=== PATIENT | female | born 1945 | race Caucasian/White ===

== ENCOUNTER 2020-06-13 18:11 | Inpatient (IN) | payer MEDICARE, OTHER ==
--- NOTE | 2020-06-13 18:44 | ERPHSYRPT ---
- History of Present Illness Source: patient Exam Limitations: no limitations Patient Subjective Stated Complaint: HTN Triage Nursing Assessment: Patient ambulated back to ED and transferred self to bed. Patient A+O X3. Patient's skin pink, warm and dry. Patient complains of HTN since yesterday morning around 143/100. Patient denies pain or discomfort. Patient's lungs clear a/p [place]. No edema noted. Heart tones audible. Patient states she just feel a little off and dizzy at times. Patient does states she has a hx of vertigo. Timing/Duration: yesterday, gradual onset, worse Severity: moderate Associated Symptoms: denies symptoms Hx Tetanus, Diphtheria Vaccination/Date Given: No Hx Influenza Vaccination/Date Given: Yes Hx Pneumococcal Vaccination/Date Given: No Immunizations Up to Date: Yes <JENN PULIDO - Last Filed: 06/13/20 18:50> <PRICILA HANSEN - Last Filed: 06/13/20 21:50> - History of Present Illness Time Seen by Provider: 06/13/20 18:31 Physician History: 74 years old female with a history of hypertension fairly controlled until yesterday presented in the ER with uncontrolled blood pressure going in 170s despite taking her routine medications. Yesterday she took 2 extra 10 mg lisinopril's which helped control pressure but today it was not helping. Denies any chest pain palpitations or shortness of breath but does feel some vertiginous symptoms which patient states she occasionally get vertigo. Denies any numbness tingling or focal weakness. No visual disturbance. Denies any abdominal pain nausea or vomiting. Itzf-ikx-xerorel cough cold medication use. (JENN PULIDO) Allergies/Adverse Reactions: codeine [Codeine] Allergy (Mild, Verified 06/13/20 18:23) Vomiting fentanyl Allergy (Mild, Verified 06/13/20 18:23) meperidine HCl [From Demerol] Allergy (Mild, Verified 06/13/20 18:23) morphine Allergy (Mild, Verified 06/13/20 18:23) VOMITING promethazine HCl [From Phenergan] Allergy (Mild, Verified 06/13/20 18:23) Home Medications: Celecoxib [Celebrex] 200 mg PO BID 10/25/11 [History] Leflunomide 1 tab PO DAILY 06/13/20 [History] Lisinopril 10 mg [Zestril 10 MG] 1 tab PO DAILY 06/13/20 [History] Travel Risk - International Travel Have you traveled outside of the country in past 3 weeks: No - Coronavirus Screening Are you exhibiting any of the following symptoms?: No Close contact with a COVID-19 positive Pt in past 14-21 Days: No <JENN PULIDO - Last Filed: 06/13/20 18:50> - Review of Systems Constitutional: No Symptoms Eyes: No Symptoms Ears, Nose, & Throat: No Symptoms Respiratory: No Symptoms Cardiac: No Symptoms Abdominal/Gastrointestinal: No Symptoms Genitourinary Symptoms: No Symptoms Musculoskeletal: No Symptoms Skin: No Symptoms Neurological: Dizziness Psychological: No Symptoms Endocrine: No Symptoms Hematologic/Lymphatic: No Symptoms Immunological/Allergic: No Symptoms <JENN PULIDO - Last Filed: 06/13/20 18:50> - Past Medical History Pertinent Past Medical History: Yes Neurological History: No Pertinent History ENT History: No Pertinent History Cardiac History: Hypertension Respiratory History: No Pertinent History Endocrine Medical History: No Pertinent History Musculoskeletal History: Osteoarthritis, Rheumatoid Arthritis GI Medical History: No Pertinent History History: No Pertinent History Psycho-Social History: No Pertinent History Female Reproductive Disorders: No Pertinent History Other Medical History: NO SIGNIFICANT SURGICAL HX. PAST SUMMER HAD RIGHT EYE SURGERY FOR TEAR IN [place] - Past Surgical History Past Surgical History: Yes Neuro Surgical History: No Pertinent History Cardiac: No Pertinent History Respiratory: No Pertinent History Genitourinary: No Pertinent History Musculoskeletal: No Pertinent History Female Surgical History: Hysterectomy Other Surgical History: JOINT REPLACEMENT LEFT HAND AND ONLY PARTIAL HYSTERECTOMY - Social History Smoking Status: Never smoker Exposure to second hand smoke: Yes Drug Use: none Patient Lives Alone: Yes - Female History Hx Now: No <JENN PULIDO - Last Filed: 06/13/20 18:50> - Physical Exam General Appearance: no apparent distress, alert, anxiety Eye Exam: PERRL/EOMI, eyes nml inspection Ears, Nose, Throat Exam: normal ENT inspection, TMs normal, pharynx normal Neck Exam: normal inspection, non-tender, supple, full range of motion Respiratory Exam: normal breath sounds, lungs clear Cardiovascular Exam: regular rate/rhythm, normal heart sounds Gastrointestinal/Abdomen Exam: soft, normal bowel sounds, No tenderness Back Exam: normal inspection, normal range of motion Neurologic Exam: alert, oriented x 3, cooperative, supervisor pipe joints II-XII nml as tested, normal mood/affect, nml cerebellar function, sensation nml, No motor deficits, No sensory deficit Skin Exam: normal color SpO2 Interpretation: normal SpO2: 98 O2 Delivery: Room Air <JENN PULIDO - Last Filed: 06/13/20 18:50> - Nursing Vital Signs Nursing Vital Signs: Initial Vital Signs Temperature 98.0 F 06/13/20 18:24 Pulse Rate 80 06/13/20 18:24 Respiratory Rate 18 06/13/20 18:24 Blood Pressure 195/100 06/13/20 18:24 O2 Sat by Pulse Oximetry 98 06/13/20 18:24 Pain Scale Pain Intensity 0 - Course EKG Interpreted by Me: RATE (87), Sinus Rhythm, NORMAL AXIS, NORMAL INTERVALS, Other (Inferior leads ST depression) <JENN PULIDO - Last Filed: 06/13/20 18:50> Ordered Tests: Active Orders 24 hr Category Date Time Status EKG-ER Only STAT Care 06/13/20 18:39 Active IV Insertion STAT Care 06/13/20 18:39 Active CHEST 1 VIEW (PORTABLE) Stat Exams 06/13/20 18:38 Taken HEAD WITHOUT CONTRAST [CT] Stat Exams 06/13/20 18:39 Taken CBC W DIFF Stat Lab 06/13/20 18:42 Completed CMP Stat Lab 06/13/20 18:42 Completed CULTURE,URINE Stat Lab 06/13/20 18:42 Received TROPONIN Q3H Lab 06/13/20 18:40 Completed TROPONIN Q3H Lab 06/13/20 21:38 Received TROPONIN Q3H Lab 06/14/20 00:45 Ordered TROPONIN Q3H Lab 06/14/20 03:45 Ordered TROPONIN Q3H Lab 06/14/20 06:45 Ordered UA W/RFX UR CULTURE Stat Lab 06/13/20 18:42 Completed Transfer Order Routine Transfer 06/13/20 Ordered Medication Summary Generic Name Dose Route Start Last Admin Trade Name Freq PRN Reason Stop Dose Admin Sodium Chloride 1,000 mls @ 75 mls/hr 06/13/20 20:15 06/13/20 20:18 Sodium Chloride 0.9% 1000 Ml IV 07/13/20 20:14 75 mls/hr .[id number] KELLY Administration Discontinued Medications Generic Name Dose Route Start Last Admin Trade Name Karin PRN Reason Stop Dose Admin Clonidine 0.1 mg 06/13/20 21:12 06/13/20 21:13 Catapres 0.1 Mg PO 06/13/20 21:13 0.1 mg STAT ONE Administration Clonidine Confirm 06/13/20 21:13 Catapres 0.1 Mg Administered 06/13/20 21:14 Dose 0.1 mg .ROUTE .STK-MED ONE Enalaprilat 1.25 mg 06/13/20 19:08 06/13/20 19:25 Vasotec I.V. 2.5 Mg IV 06/13/20 19:09 1.25 mg STAT ONE Administration Enalaprilat Confirm 06/13/20 19:23 Vasotec I.V. 2.5 Mg Administered 06/13/20 19:24 Dose 2.5 mg IV .STK-MED ONE Metoprolol Tartrate 5 mg 06/13/20 20:48 06/13/20 20:53 Lopressor 5 Mg/5 Ml Injection IV 06/13/20 20:49 5 mg STAT ONE Administration Metoprolol Tartrate Confirm 06/13/20 20:52 Lopressor 5 Mg/5 Ml Injection Administered 06/13/20 20:53 Dose 5 mg IV .STK-MED ONE Lab/Rad Data: Laboratory Result Diagrams 06/13/20 18:42 06/13/20 18:42 Laboratory Results 06/13/20 06/13/20 06/13/20 Range/Units 18:42 18:42 18:42 WBC 4.3 (4.0-10.5) K/mm3 RBC 4.43 (4.1-5.4) M/mm3 Hgb 13.0 (12.0-16.0) gm/dl Hct 39.4 (35-47) % MCV 88.9 (78-100) fl MCH 29.3 (26-32) pg MCHC 33.0 (32-36) g/dl RDW 13.0 (11.5-14.0) % Plt Count 150 (150-450) K/mm3 MPV 10.4 (7.5-11.0) fl Gran % 65.8 (36.0-66.0) % Eos # (Auto) 0 (0-0.5) Absolute Lymphs (auto) 0.77 L (1.0-4.6) Absolute Monos (auto) 0.70 (0.0-1.3) Lymphocytes % 17.8 L (24.0-44.0) % Monocytes % 16.2 H (0.0-12.0) % Eosinophils % 0.0 (0.00-5.0) % Basophils % 0.2 (0.0-0.4) % Absolute Granulocytes 2.85 (1.4-6.9) Basophils # 0.01 (0-0.4) Sodium 127 L (137-145) mmol/L Potassium 3.7 (3.5-5.1) mmol/L Chloride 94 L (98-107) mmol/L Carbon Dioxide 26 (22-30) mmol/L Anion Gap 10.9 (5-15) MEQ/L BUN 15 (7-17) mg/dL Creatinine 0.50 L (0.52-1.04) mg/dL Estimated GFR > 60.0 ML/MIN Glucose 109 H (74-106) mg/dL Calcium 9.3 (8.4-10.2) mg/dL Total Bilirubin 0.50 (0.2-1.3) mg/dL AST 35 (14-36) U/L ALT 20 (0-35) U/L Alkaline Phosphatase 88 (38-126) U/L Troponin I (0.000-0.034) ng/mL Serum Total Protein 7.9 (6.3-8.2) g/dL Albumin 4.3 (3.5-5.0) g/dL Urine Color YELLOW (YELLOW) Urine Appearance CLEAR (CLEAR) Urine pH 5.0 (5-6) Ur Specific [place] 1.019 (1.005-1.025) Urine Protein 100 (Negative) Urine Ketones TRACE (NEGATIVE) Urine Blood MODERATE (0-5) [place]/ul Urine Nitrite NEGATIVE (NEGATIVE) Urine Bilirubin NEGATIVE (NEGATIVE) Urine Urobilinogen NEGATIVE (0-1) mg/dL Ur Leukocyte Esterase NEGATIVE (NEGATIVE) Urine WBC (Auto) 0-2 (0-5) /HPF Urine RBC (Auto) 0-2 (0-2) /HPF U Hyaline Cast (Auto) 0-2 (0-2) /LPF U Epithel Cells (Auto) NONE (FEW) /HPF Urine Bacteria (Auto) RARE (NEGATIVE) /HPF Urine Mucus (Auto) SLIGHT (NEGATIVE) /HPF Urine Culture Reflexed YES (NO) Urine Glucose NEGATIVE (NEGATIVE) mg/dL 24/20 Range/Units 18:40 WBC (4.0-10.5) K/mm3 RBC (4.1-5.4) M/mm3 Hgb (12.0-16.0) gm/dl Hct (35-47) % MCV (78-100) fl MCH (26-32) pg MCHC (32-36) g/dl RDW (11.5-14.0) % Plt Count (150-450) K/mm3 MPV (7.5-11.0) fl Gran % (36.0-66.0) % Eos # (Auto) (0-0.5) Absolute Lymphs (auto) (1.0-4.6) Absolute Monos (auto) (0.0-1.3) Lymphocytes % (24.0-44.0) % Monocytes % (0.0-12.0) % Eosinophils % (0.00-5.0) % Basophils % (0.0-0.4) % Absolute Granulocytes (1.4-6.9) Basophils # (0-0.4) Sodium (137-145) mmol/L Potassium (3.5-5.1) mmol/L Chloride (98-107) mmol/L Carbon Dioxide (22-30) mmol/L Anion Gap (5-15) MEQ/L BUN (7-17) mg/dL Creatinine (0.52-1.04) mg/dL Estimated GFR ML/MIN Glucose (74-106) mg/dL Calcium (8.4-10.2) mg/dL Total Bilirubin (0.2-1.3) mg/dL AST (14-36) U/L ALT (0-35) U/L Alkaline Phosphatase (38-126) U/L Troponin I < 0.012 (0.000-0.034) ng/mL Serum Total Protein (6.3-8.2) g/dL Albumin (3.5-5.0) g/dL Urine Color (YELLOW) Urine Appearance (CLEAR) Urine pH (5-6) Ur Specific [place] (1.005-1.025) Urine Protein (Negative) Urine Ketones (NEGATIVE) Urine Blood (0-5) [place]/ul Urine Nitrite (NEGATIVE) Urine Bilirubin (NEGATIVE) Urine Urobilinogen (0-1) mg/dL Ur Leukocyte Esterase (NEGATIVE) Urine WBC (Auto) (0-5) /HPF Urine RBC (Auto) (0-2) /HPF U Hyaline Cast (Auto) (0-2) /LPF U Epithel Cells (Auto) (FEW) /HPF Urine Bacteria (Auto) (NEGATIVE) /HPF Urine Mucus (Auto) (NEGATIVE) /HPF Urine Culture Reflexed (NO) Urine Glucose (NEGATIVE) mg/dL <JENN PULIDO - Last Filed: 06/13/20 18:50> - Progress Progress: improved, re-examined Counseled pt/family regarding: lab results, diagnosis, need for follow-up, rad results <PRICILA HANSEN - Last Filed: 06/13/20 21:50> - Progress Progress Note: 06/13/20 18:45 Work-up is pending, care is transferred to Dr. Hansen at shift change. (JENN PULIDO) 06/13/20 20:10 CAT scan of the brain without contrast reveals no acute intracranial abnormality. 06/13/20 21:09 Chest x-ray shows chronic changes but no acute cardiopulmonary process. Medical decision making: This patient prefers to go home. Her laboratory work- up shows mild hyponatremia and mild dehydration. She also has hypertension. Her CAT scan of her head is normal without any evidence of acute intracranial abnormality. Her blood pressure is coming down. She has no visual changes no headache she has no chest pain she is not short of breath. Her troponin is normal. 06/13/20 21:[address] Christensen about placing this patient in observation. I reviewed the patient history, condition, and laboratory and radiographic work-up results. He agrees. The patient also agrees to come into the hospital. We will make arrangements for placing the patient in observation (PRICILA HANSEN) <JENN PULIDO - Last Filed: 06/13/20 18:50> - Departure Departure Disposition: Observation Critical Care Time: Yes Critical Care Time(excluding separately billable procedures): Critical 30-74 mins <PRICILA HANSEN - Last Filed: 06/13/20 21:50> - Departure Clinical Impression: Hypertensive urgency, Hyponatremia, Mild dehydration Condition: Stable Referrals: JONNY JACK CREDIT REVIEW MANAGER [Primary Care Provider] -
[2020-06-13 18:50] LABS: Absolute Neutrophil Ct (ANC) 2.85 (1.4-6.9); BASOPHIL % 0.2 % (0.0-0.4); Basophil (Absolute #) 0.01 (0-0.4); Eosinophil (Absolute #) 0 (0-0.5); Hematocrit 39.4 % (35-47); Lymphocyte (Absolute #) 0.77 (1.0-4.6); Lymphocytes % 17.8 % (24.0-44.0); Mean Cell Volume 88.9 fl (78-100); Mean Corpuscular Hemoglobin 29.3 pg (26-32); Mean Platelet Volume 10.4 fl (7.5-11.0); Monocytes % 16.2 % (0.0-12.0); Neutrophil % 65.8 % (36.0-66.0); Platelet Count 150 K/mm3 (150-450); Red Blood Count 4.43 M/mm3 (4.1-5.4); White Blood Count 4.3 K/mm3 (4.0-10.5)
[2020-06-13 18:56] LABS: Appearance CLEAR (CLEAR); Bacteria RARE /HPF (NEGATIVE); Bilirubin NEGATIVE (NEGATIVE); Blood MODERATE Ery/ul (0-5); Glucose NEGATIVE (NEGATIVE); Hyaline Casts 0-2 /LPF (0-2); Ketones TRACE (NEGATIVE); Leukocyte Esterase NEGATIVE (NEGATIVE); Mucus SLIGHT /HPF (NEGATIVE); Nitrite NEGATIVE (NEGATIVE); Protein,Urine Dip 100 (Negative); RBC 0-2 /HPF (0-2); Specific Gravity 1.019 (1.005-1.025); Urobilinogen NEGATIVE mg/dL (0-1); WBC 0-2 /HPF (0-5)
[2020-06-13 19:08] LABS: ALBUMIN 4.3 g/dL (3.5-5.0); ALKALINE PHOSPHATASE 88 U/L (38-126); ANION GAP 10.9 MEQ/L (5-15); BLOOD UREA NITROGEN 15 mg/dL (7-17); CHLORIDE 94 mmol/L (98-107); Calcium 9.3 mg/dL (8.4-10.2); Carbon Dioxide 26 mmol/L (22-30); EST GLOMERULAR FILTRATION RATE > 60.0 ML/MIN; Glucose 109 mg/dL (74-106); Potassium 3.7 mmol/L (3.5-5.1); SGOT/AST 35 U/L (14-36); SGPT/ALT 20 U/L (0-35); SODIUM 127 mmol/L (137-145); Total Protein 7.9 g/dL (6.3-8.2)
[2020-06-13] MEDS ORDERED: VASOTEC I.V. 2.5 MG IV ONE ×2 (19:08→19:23)
[2020-06-13] MEDS ORDERED: Sodium Chloride 0.9% 1000 ML 1,000 ML IV SCH (20:15)
[2020-06-13] MEDS ORDERED: Sodium Chloride 0.9% 1000 ML 1,000 ML ONE (20:17)
[2020-06-13] MEDS ORDERED: LOPRESSOR 5 MG/5 ML INJECTION IV ONE ×2 (20:48→20:52)
[2020-06-13] MEDS ORDERED: Catapres 0.1 MG PO ONE (21:12)
[2020-06-13] MEDS ORDERED: Catapres 0.1 MG ONE (21:13)
[2020-06-13] MEDS ORDERED: Zofran 4 MG/2 ML VIAL IV PRN (22:22)
[2020-06-13] MEDS: VASOTEC I.V. 2.5 MG IV SCH (23:30)
[2020-06-14] MEDS: TYLENOL 325 MG PO PRN ×3 (01:58→16:37)
[2020-06-14] MEDS: VASOTEC I.V. 2.5 MG IV SCH (04:22)
[2020-06-14 04:32] LABS: ANION GAP 5.4 MEQ/L (5-15); BLOOD UREA NITROGEN 10 mg/dL (7-17); CHLORIDE 99 mmol/L (98-107); Calcium 8.6 mg/dL (8.4-10.2); Carbon Dioxide 29 mmol/L (22-30); Creatinine 1 0.47 mg/dL (0.52-1.04); EST GLOMERULAR FILTRATION RATE > 60.0 ML/MIN; Glucose 96 mg/dL (74-106); Potassium 3.6 mmol/L (3.5-5.1); SODIUM 130 mmol/L (137-145)
[2020-06-14] MEDS ORDERED: VASOTEC I.V. 2.5 MG IV PRN (07:30)
--- NOTE | 2020-06-14 08:48 | XRAY ---
Indication: Dizziness. Elevated blood pressure. Multiple contiguous axial images obtained through the head without contrast. Comparison: May 07, 2011. There is again age-appropriate global atrophy with now mild periventricular degenerative micro-ischemia bilaterally. No acute intracranial hemorrhage, abnormal extra-axial fluid collection, or mass effect. Fourth ventricle is midline without hydrocephalus. [place]-white matter differentiation preserved. Bony calvarium intact. Near complete opacification of the visualized right maxillary sinus. Remaining visualized paranasal sinuses and mastoid air cells are clear. Impression: Nonacute senile brain. Incidental paranasal sinus disease. Comment: Preliminary interpretation was made by [facility]. No critical discrepancy.
--- NOTE | 2020-06-14 08:50 | XRAY ---
Indication: Elevated blood pressure. Comparison: None Portable apical lordotic chest clear with incidental tiny calcified granulomas. Heart is not enlarged. Descending aorta mildly tortuous. Bony thorax intact with mild osteopenia and degenerative changes. Impression: Nonacute chest with chronic features.
--- NOTE | 2020-06-14 10:21 | PCM.SSS ---
History of Present Illness - Chief Complaint Chief Complaint: Hypertensive urgency History of Present Illness: is a 74 year old female who came to the ER with complaint of elevated blood pressure, it had been high for last 3-4 days, no chest pain, no visual changes, had some headache, no mental status changes, no neuro symptoms. takes lisinopril 10mg daily and reports compliance. - Review of Systems Constitutional: No Fever, No Chills Respiratory: No Cough, No Short Of Breath Cardiac: No Chest Pain, No Edema, No Syncope Abdominal/Gastrointestinal: No Abdominal Pain, No Nausea, No Vomiting, No Diarrhea Skin: No Rash All Other Systems: Reviewed and Negative Medications & Allergies Home Medications: Home Medication List Celecoxib [Celebrex] 200 mg PO BID 10/25/11 [History Confirmed 06/13/20] Leflunomide 1 tab PO DAILY 06/13/20 [History Confirmed 06/13/20] Lisinopril 10 mg [Zestril 10 MG] 2 tab PO DAILY #60 tablet 06/14/20 [Rx] Allergies/Adverse Reactions: Allergies Allergy/AdvReac Type Severity Reaction Status Date / Time codeine [Codeine] Allergy Mild Vomiting Verified 06/13/20 18:23 fentanyl Allergy Mild Verified 06/13/20 18:23 meperidine HCl [From Demerol] Allergy Mild Verified 06/13/20 18:23 morphine Allergy Mild Verified 06/13/20 18:23 promethazine HCl Allergy Mild Verified 06/13/20 18:23 [From Phenergan] - Past Medical History Past Medical History: Yes Neurological History: No Pertinent History ENT History: No Pertinent History Cardiac History: Hypertension Respiratory History: No Pertinent History Endocrine Medical History: No Pertinent History Musculoskelatal History: Osteoarthritis, Rheumatoid Arthritis GI Medical History: No Pertinent History History: No Pertinent History Pyscho-Social History: No Pertinent History Reproductive Disorders: No Pertinent History Comment: NO SIGNIFICANT SURGICAL HX. PAST SUMMER HAD RIGHT EYE SURGERY FOR TEAR IN [place] - Female History Are you now?: No - Past Surgical History Past Surgical History: Yes Neuro Surgical History: No Pertinent History Cardiac History: No Pertinent History Respiratory Surgery: No Pertinent History Genitourinary Surgical Hx: No Pertinent History Musculskeletal Surgical Hx: No Pertinent History Female Surgical History: Hysterectomy Other Surgical History: JOINT REPLACEMENT LEFT HAND AND ONLY PARTIAL HYSTERECTOMY - Social History Smoking Status: Never smoker Exposure to second hand smoke: No Alcohol: None Drug Use: none - Physical Exam Vital Signs: Vital Signs - 24 hr Temp Pulse Resp BP Pulse Ox 06/14/20 07:47 97.8 F 77 16 145/77 96 06/14/20 03:41 99.1 F 72 17 139/76 96 06/14/20 00:00 18 06/13/20 23:06 97.7 F 71 19 126/66 96 06/13/20 22:22 96 06/13/20 22:00 75 155/103 96 06/13/20 21:01 77 157/92 94 L 06/13/20 20:00 81 14 166/99 95 06/13/20 19:20 81 165/100 95 06/13/20 18:50 98 06/13/20 18:24 98.0 F 80 18 195/100 98 General Appearance: no apparent distress, alert Neurologic Exam: alert, oriented x 3, cooperative, normal mood/affect, nml cerebellar function, nml station & gait, sensation nml, No motor deficits Eye Exam: PERRL/EOMI, eyes nml inspection Respiratory Exam: normal breath sounds, lungs clear, No respiratory distress Cardiovascular Exam: regular rate/rhythm, normal heart sounds, normal peripheral pulses Gastrointestinal/Abdomen Exam: soft, normal bowel sounds, No tenderness, No mass Extremity Exam: normal inspection, normal range of motion, pelvis stable Skin Exam: normal color, warm, dry, No rash Results - Labs Lab/Micro Results: Lab Results-Last 24 Hours 06/13/20 06/13/20 06/13/20 Range/Units 18:40 18:42 18:42 WBC 4.3 (4.0-10.5) K/mm3 RBC 4.43 (4.1-5.4) M/mm3 Hgb 13.0 (12.0-16.0) gm/dl Hct 39.4 (35-47) % MCV 88.9 (78-100) fl MCH 29.3 (26-32) pg MCHC 33.0 (32-36) g/dl RDW 13.0 (11.5-14.0) % Plt Count 150 (150-450) K/mm3 MPV 10.4 (7.5-11.0) fl Gran % 65.8 (36.0-66.0) % Eos # (Auto) 0 (0-0.5) Absolute Lymphs (auto) 0.77 L (1.0-4.6) Absolute Monos (auto) 0.70 (0.0-1.3) Lymphocytes % 17.8 L (24.0-44.0) % Monocytes % 16.2 H (0.0-12.0) % Eosinophils % 0.0 (0.00-5.0) % Basophils % 0.2 (0.0-0.4) % Absolute Granulocytes 2.85 (1.4-6.9) Basophils # 0.01 (0-0.4) Sodium (137-145) mmol/L Potassium (3.5-5.1) mmol/L Chloride (98-107) mmol/L Carbon Dioxide (22-30) mmol/L Anion Gap (5-15) MEQ/L BUN (7-17) mg/dL Creatinine (0.52-1.04) mg/dL Estimated GFR ML/MIN Glucose (74-106) mg/dL Calcium (8.4-10.2) mg/dL Total Bilirubin (0.2-1.3) mg/dL AST (14-36) U/L ALT (0-35) U/L Alkaline Phosphatase (38-126) U/L Troponin I < 0.012 (0.000-0.034) ng/mL Serum Total Protein (6.3-8.2) g/dL Albumin (3.5-5.0) g/dL Urine Color YELLOW (YELLOW) Urine Appearance CLEAR (CLEAR) Urine pH 5.0 (5-6) Ur Specific [place] 1.019 (1.005-1.025) Urine Protein 100 (Negative) Urine Ketones TRACE (NEGATIVE) Urine Blood MODERATE (0-5) Erasto/ul Urine Nitrite NEGATIVE (NEGATIVE) Urine Bilirubin NEGATIVE (NEGATIVE) Urine Urobilinogen NEGATIVE (0-1) mg/dL Ur Leukocyte Esterase NEGATIVE (NEGATIVE) Urine WBC (Auto) 0-2 (0-5) /HPF Urine RBC (Auto) 0-2 (0-2) /HPF U Hyaline Cast (Auto) 0-2 (0-2) /LPF U Epithel Cells (Auto) NONE (FEW) /HPF Urine Bacteria (Auto) RARE (NEGATIVE) /HPF Urine Mucus (Auto) SLIGHT (NEGATIVE) /HPF Urine Culture Reflexed YES (NO) Urine Glucose NEGATIVE (NEGATIVE) mg/dL 06/13/20 06/13/20 06/14/20 Range/Units 18:42 21:38 00:55 WBC (4.0-10.5) K/mm3 RBC (4.1-5.4) M/mm3 Hgb (12.0-16.0) gm/dl Hct (35-47) % MCV (78-100) fl MCH (26-32) pg MCHC (32-36) g/dl RDW (11.5-14.0) % Plt Count (150-450) K/mm3 MPV (7.5-11.0) fl Gran % (36.0-66.0) % Eos # (Auto) (0-0.5) Absolute Lymphs (auto) (1.0-4.6) Absolute Monos (auto) (0.0-1.3) Lymphocytes % (24.0-44.0) % Monocytes % (0.0-12.0) % Eosinophils % (0.00-5.0) % Basophils % (0.0-0.4) % Absolute Granulocytes (1.4-6.9) Basophils # (0-0.4) Sodium 127 L (137-145) mmol/L Potassium 3.7 (3.5-5.1) mmol/L Chloride 94 L (98-107) mmol/L Carbon Dioxide 26 (22-30) mmol/L Anion Gap 10.9 (5-15) MEQ/L BUN 15 (7-17) mg/dL Creatinine 0.50 L (0.52-1.04) mg/dL Estimated GFR > 60.0 ML/MIN Glucose 109 H (74-106) mg/dL Calcium 9.3 (8.4-10.2) mg/dL Total Bilirubin 0.50 (0.2-1.3) mg/dL AST 35 (14-36) U/L ALT 20 (0-35) U/L Alkaline Phosphatase 88 (38-126) U/L Troponin I < 0.012 < 0.012 (0.000-0.034) ng/mL Serum Total Protein 7.9 (6.3-8.2) g/dL Albumin 4.3 (3.5-5.0) g/dL Urine Color (YELLOW) Urine Appearance (CLEAR) Urine pH (5-6) Ur Specific [place] (1.005-1.025) Urine Protein (Negative) Urine Ketones (NEGATIVE) Urine Blood (0-5) Erasto/ul Urine Nitrite (NEGATIVE) Urine Bilirubin (NEGATIVE) Urine Urobilinogen (0-1) mg/dL Ur Leukocyte Esterase (NEGATIVE) Urine WBC (Auto) (0-5) /HPF Urine RBC (Auto) (0-2) /HPF U Hyaline Cast (Auto) (0-2) /LPF U Epithel Cells (Auto) (FEW) /HPF Urine Bacteria (Auto) (NEGATIVE) /HPF Urine Mucus (Auto) (NEGATIVE) /HPF Urine Culture Reflexed (NO) Urine Glucose (NEGATIVE) mg/dL 06/14/20 06/14/20 Range/Units 04:00 04:00 WBC (4.0-10.5) K/mm3 RBC (4.1-5.4) M/mm3 Hgb (12.0-16.0) gm/dl Hct (35-47) % MCV (78-100) fl MCH (26-32) pg MCHC (32-36) g/dl RDW (11.5-14.0) % Plt Count (150-450) K/mm3 MPV (7.5-11.0) fl Gran % (36.0-66.0) % Eos # (Auto) (0-0.5) Absolute Lymphs (auto) (1.0-4.6) Absolute Monos (auto) (0.0-1.3) Lymphocytes % (24.0-44.0) % Monocytes % (0.0-12.0) % Eosinophils % (0.00-5.0) % Basophils % (0.0-0.4) % Absolute Granulocytes (1.4-6.9) Basophils # (0-0.4) Sodium 130 L (137-145) mmol/L Potassium 3.6 (3.5-5.1) mmol/L Chloride 99 (98-107) mmol/L Carbon Dioxide 29 (22-30) mmol/L Anion Gap 5.4 (5-15) MEQ/L BUN 10 (7-17) mg/dL Creatinine 0.47 L (0.52-1.04) mg/dL Estimated GFR > 60.0 ML/MIN Glucose 96 (74-106) mg/dL Calcium 8.6 (8.4-10.2) mg/dL Total Bilirubin (0.2-1.3) mg/dL AST (14-36) U/L ALT (0-35) U/L Alkaline Phosphatase (38-126) U/L Troponin I < 0.012 (0.000-0.034) ng/mL Serum Total Protein (6.3-8.2) g/dL Albumin (3.5-5.0) g/dL Urine Color (YELLOW) Urine Appearance (CLEAR) Urine pH (5-6) Ur Specific [place] (1.005-1.025) Urine Protein (Negative) Urine Ketones (NEGATIVE) Urine Blood (0-5) Erasto/ul Urine Nitrite (NEGATIVE) Urine Bilirubin (NEGATIVE) Urine Urobilinogen (0-1) mg/dL Ur Leukocyte Esterase (NEGATIVE) Urine WBC (Auto) (0-5) /HPF Urine RBC (Auto) (0-2) /HPF U Hyaline Cast (Auto) (0-2) /LPF U Epithel Cells (Auto) (FEW) /HPF Urine Bacteria (Auto) (NEGATIVE) /HPF Urine Mucus (Auto) (NEGATIVE) /HPF Urine Culture Reflexed (NO) Urine Glucose (NEGATIVE) mg/dL - Radiology Impressions Radiology Exams & Impressions: Radiology Procedures Category Date Time Status CHEST 1 VIEW (PORTABLE) Stat Exams 06/13/20 18:38 Completed HEAD WITHOUT CONTRAST [CT] Stat Exams 06/13/20 18:39 Completed Assessment/Plan (1) Hypertensive urgency Current Visit: Yes Status: Acute Assessment & Plan: bp 140's over 80's, no complaints today. will increase lisinopril to 20mg daily and have bmp and f/u in 1 week Code(s): I16.0 - HYPERTENSIVE URGENCY (2) Hyponatremia Current Visit: Yes Status: Acute Assessment & Plan: f/u bp and bmp in 1 week in office Code(s): E87.1 - HYPO-OSMOLALITY AND HYPONATREMIA Hospital Summary - Vitals & Intake/Output Vital Signs: Vital Signs Temperature 97.8 F 06/14/20 07:47 Pulse Rate 77 06/14/20 07:47 Respiratory Rate 16 06/14/20 07:47 Blood Pressure 145/77 06/14/20 07:47 O2 Sat by Pulse Oximetry 96 06/14/20 07:47 Intake & Output: Intake & Output 06/11/20 06/12/20 06/13/20 06/14/20 11:59 11:59 11:59 11:59 Intake Total 841 Output Total 900 Balance -59 Weight 60.8 kg - Lab Result Diagrams: 06/13/20 18:42 06/14/20 04:00 Lab Results-Last 24 Hrs: Lab Results-Last 24 Hours 06/13/20 06/13/20 06/13/20 Range/Units 18:40 18:42 18:42 WBC 4.3 (4.0-10.5) K/mm3 RBC 4.43 (4.1-5.4) M/mm3 Hgb 13.0 (12.0-16.0) gm/dl Hct 39.4 (35-47) % MCV 88.9 (78-100) fl MCH 29.3 (26-32) pg MCHC 33.0 (32-36) g/dl RDW 13.0 (11.5-14.0) % Plt Count 150 (150-450) K/mm3 MPV 10.4 (7.5-11.0) fl Gran % 65.8 (36.0-66.0) % Eos # (Auto) 0 (0-0.5) Absolute Lymphs (auto) 0.77 L (1.0-4.6) Absolute Monos (auto) 0.70 (0.0-1.3) Lymphocytes % 17.8 L (24.0-44.0) % Monocytes % 16.2 H (0.0-12.0) % Eosinophils % 0.0 (0.00-5.0) % Basophils % 0.2 (0.0-0.4) % Absolute Granulocytes 2.85 (1.4-6.9) Basophils # 0.01 (0-0.4) Sodium (137-145) mmol/L Potassium (3.5-5.1) mmol/L Chloride (98-107) mmol/L Carbon Dioxide (22-30) mmol/L Anion Gap (5-15) MEQ/L BUN (7-17) mg/dL Creatinine (0.52-1.04) mg/dL Estimated GFR ML/MIN Glucose (74-106) mg/dL Calcium (8.4-10.2) mg/dL Total Bilirubin (0.2-1.3) mg/dL AST (14-36) U/L ALT (0-35) U/L Alkaline Phosphatase (38-126) U/L Troponin I < 0.012 (0.000-0.034) ng/mL Serum Total Protein (6.3-8.2) g/dL Albumin (3.5-5.0) g/dL Urine Color YELLOW (YELLOW) Urine Appearance CLEAR (CLEAR) Urine pH 5.0 (5-6) Ur Specific [place] 1.019 (1.005-1.025) Urine Protein 100 (Negative) Urine Ketones TRACE (NEGATIVE) Urine Blood MODERATE (0-5) Erasto/ul Urine Nitrite NEGATIVE (NEGATIVE) Urine Bilirubin NEGATIVE (NEGATIVE) Urine Urobilinogen NEGATIVE (0-1) mg/dL Ur Leukocyte Esterase NEGATIVE (NEGATIVE) Urine WBC (Auto) 0-2 (0-5) /HPF Urine RBC (Auto) 0-2 (0-2) /HPF U Hyaline Cast (Auto) 0-2 (0-2) /LPF U Epithel Cells (Auto) NONE (FEW) /HPF Urine Bacteria (Auto) RARE (NEGATIVE) /HPF Urine Mucus (Auto) SLIGHT (NEGATIVE) /HPF Urine Culture Reflexed YES (NO) Urine Glucose NEGATIVE (NEGATIVE) mg/dL 06/13/20 06/13/20 06/14/20 Range/Units 18:42 21:38 00:55 WBC (4.0-10.5) K/mm3 RBC (4.1-5.4) M/mm3 Hgb (12.0-16.0) gm/dl Hct (35-47) % MCV (78-100) fl MCH (26-32) pg MCHC (32-36) g/dl RDW (11.5-14.0) % Plt Count (150-450) K/mm3 MPV (7.5-11.0) fl Gran % (36.0-66.0) % Eos # (Auto) (0-0.5) Absolute Lymphs (auto) (1.0-4.6) Absolute Monos (auto) (0.0-1.3) Lymphocytes % (24.0-44.0) % Monocytes % (0.0-12.0) % Eosinophils % (0.00-5.0) % Basophils % (0.0-0.4) % Absolute Granulocytes (1.4-6.9) Basophils # (0-0.4) Sodium 127 L (137-145) mmol/L Potassium 3.7 (3.5-5.1) mmol/L Chloride 94 L (98-107) mmol/L Carbon Dioxide 26 (22-30) mmol/L Anion Gap 10.9 (5-15) MEQ/L BUN 15 (7-17) mg/dL Creatinine 0.50 L (0.52-1.04) mg/dL Estimated GFR > 60.0 ML/MIN Glucose 109 H (74-106) mg/dL Calcium 9.3 (8.4-10.2) mg/dL Total Bilirubin 0.50 (0.2-1.3) mg/dL AST 35 (14-36) U/L ALT 20 (0-35) U/L Alkaline Phosphatase 88 (38-126) U/L Troponin I < 0.012 < 0.012 (0.000-0.034) ng/mL Serum Total Protein 7.9 (6.3-8.2) g/dL Albumin 4.3 (3.5-5.0) g/dL Urine Color (YELLOW) Urine Appearance (CLEAR) Urine pH (5-6) Ur Specific [place] (1.005-1.025) Urine Protein (Negative) Urine Ketones (NEGATIVE) Urine Blood (0-5) Erasto/ul Urine Nitrite (NEGATIVE) Urine Bilirubin (NEGATIVE) Urine Urobilinogen (0-1) mg/dL Ur Leukocyte Esterase (NEGATIVE) Urine WBC (Auto) (0-5) /HPF Urine RBC (Auto) (0-2) /HPF U Hyaline Cast (Auto) (0-2) /LPF U Epithel Cells (Auto) (FEW) /HPF Urine Bacteria (Auto) (NEGATIVE) /HPF Urine Mucus (Auto) (NEGATIVE) /HPF Urine Culture Reflexed (NO) Urine Glucose (NEGATIVE) mg/dL 06/14/20 06/14/20 Range/Units 04:00 04:00 WBC (4.0-10.5) K/mm3 RBC (4.1-5.4) M/mm3 Hgb (12.0-16.0) gm/dl Hct (35-47) % MCV (78-100) fl MCH (26-32) pg MCHC (32-36) g/dl RDW (11.5-14.0) % Plt Count (150-450) K/mm3 MPV (7.5-11.0) fl Gran % (36.0-66.0) % Eos # (Auto) (0-0.5) Absolute Lymphs (auto) (1.0-4.6) Absolute Monos (auto) (0.0-1.3) Lymphocytes % (24.0-44.0) % Monocytes % (0.0-12.0) % Eosinophils % (0.00-5.0) % Basophils % (0.0-0.4) % Absolute Granulocytes (1.4-6.9) Basophils # (0-0.4) Sodium 130 L (137-145) mmol/L Potassium 3.6 (3.5-5.1) mmol/L Chloride 99 (98-107) mmol/L Carbon Dioxide 29 (22-30) mmol/L Anion Gap 5.4 (5-15) MEQ/L BUN 10 (7-17) mg/dL Creatinine 0.47 L (0.52-1.04) mg/dL Estimated GFR > 60.0 ML/MIN Glucose 96 (74-106) mg/dL Calcium 8.6 (8.4-10.2) mg/dL Total Bilirubin (0.2-1.3) mg/dL AST (14-36) U/L ALT (0-35) U/L Alkaline Phosphatase (38-126) U/L Troponin I < 0.012 (0.000-0.034) ng/mL Serum Total Protein (6.3-8.2) g/dL Albumin (3.5-5.0) g/dL Urine Color (YELLOW) Urine Appearance (CLEAR) Urine pH (5-6) Ur Specific [place] (1.005-1.025) Urine Protein (Negative) Urine Ketones (NEGATIVE) Urine Blood (0-5) Erasto/ul Urine Nitrite (NEGATIVE) Urine Bilirubin (NEGATIVE) Urine Urobilinogen (0-1) mg/dL Ur Leukocyte Esterase (NEGATIVE) Urine WBC (Auto) (0-5) /HPF Urine RBC (Auto) (0-2) /HPF U Hyaline Cast (Auto) (0-2) /LPF U Epithel Cells (Auto) (FEW) /HPF Urine Bacteria (Auto) (NEGATIVE) /HPF Urine Mucus (Auto) (NEGATIVE) /HPF Urine Culture Reflexed (NO) Urine Glucose (NEGATIVE) mg/dL - Radiology Exams Ordered Rad Exams-Entire Visit: Radiology Procedures Category Date Time Status CHEST 1 VIEW (PORTABLE) Stat Exams 06/13/20 18:38 Completed HEAD WITHOUT CONTRAST [CT] Stat Exams 06/13/20 18:39 Completed - Discharge Disposition: Home, Self-Care Condition: Stable Prescriptions: Continue Celecoxib [Celebrex] 200 mg PO BID Leflunomide 1 tab PO DAILY Changed Lisinopril 10 mg [Zestril 10 MG] 2 tab PO DAILY #60 tablet Outpatient Orders: BMP Time Frame: 1 Week, Facility: [facility], Location: LABORATORY Additional Instructions: increase lisinopril to 2 tabs po daily, f/u in office in 1 week with Fadumo Almazan, have lab done prior to appointment Follow up with: MATT ALMAZAN NP [NON-STAFF PHY W/O PRIVILEGES] -
[2020-06-14] MEDS: Zestril 20 MG PO SCH (11:13)
[2020-06-14] MEDS: celeBREX 100 MG PO SCH ×2 (11:26→22:15)
[2020-06-14] MEDS: Catapres 0.1 MG PO SCH ×2 (14:02→22:15)
[2020-06-14] MEDS: Sodium Chloride 0.9% 1000 ML 1,000 ML IV SCH (14:07)
[2020-06-14] MEDS ORDERED: NON-FORMULARY ITEM (Celecoxib [Celebrex] 200 MG) PO SCH (22:00)
[2020-06-15] MEDS: Sodium Chloride 0.9% 1000 ML 1,000 ML IV SCH (03:28)
[2020-06-15] MEDS: TYLENOL 325 MG PO PRN ×2 (06:53→21:36)
[2020-06-15] MEDS ORDERED: LEFLUNOMIDE PO SCH (10:00)
[2020-06-15] MEDS: Catapres 0.1 MG PO SCH (10:01)
[2020-06-15] MEDS: Zestril 20 MG PO SCH (10:01)
[2020-06-15] MEDS: celeBREX 100 MG PO SCH ×2 (10:01→21:37)
--- NOTE | 2020-06-15 11:05 | PCM.NOTE ---
Date and Time: 06/15/20 1059 Subjective Assessment: Patient states she is feeling nervous,dry mouth. Denies chest pain or shortness of breath. B/P by nurse at the bedside now is 182/83.Telemetry NSR rate 90s. At home patient was taking Lisinopril 10 mg daily. She is currently on Lisinopril 20mg daily at 10 AM and Catapress 0.1mg q 12h. ER physician started IV Vasotec 2.5mg q 6hfor B/P >170/100 and last dose was at noon yesterday for B/P of 179/90 pulse 78.States under more stress than usual lately with family. Objective Exam Neurologic Exam: alert, oriented x 3, cooperative, other (voices anxiety) Skin Exam: normal color, warm, dry Eye Exam: eyes nml inspection Ears, Nose, Throat Exam: normal ENT inspection Neck Exam: normal inspection Respiratory Exam: normal breath sounds Cardiovascular Exam: tachycardia (regular), other Gastrointestinal/Abdomen Exam: soft, normal bowel sounds (nontender) Extremity Exam: deformities (DJD hands), other (no pitting edema) OBJECTIVE DATA Vital Signs: Vital Signs - 24 hr Temp Pulse Resp BP Pulse Ox 06/15/20 07:15 98.5 F 68 20 159/88 95 06/15/20 04:05 98.0 F 67 16 129/77 96 06/14/20 23:43 97.8 F 71 16 126/58 97 06/14/20 22:22 98 06/14/20 19:36 98.9 F 73 17 138/78 98 06/14/20 17:00 76 16 174/87 06/14/20 12:20 78 179/90 06/14/20 11:00 75 163/90 Pain Assessment - Last Documented Pain Intensity 7 Pain Scale Used 0-10 Pain Scale Intake and Output: Intake & Output 06/12/20 06/13/20 06/14/20 06/15/20 11:59 11:59 11:59 11:59 Intake Total 841 1910 Output Total 900 Balance -59 1909 Weight 60.8 kg 61.5 kg Radiology Exams: Radiology Procedures Category Date Time Status CHEST 1 VIEW (PORTABLE) Stat Exams 06/13/20 18:38 Completed HEAD WITHOUT CONTRAST [CT] Stat Exams 06/13/20 18:39 Completed Assessment/Plan (1) Hypertensive urgency Current Visit: Yes Status: Acute Assessment & Plan: HTN,tachycardia- uncontrolled Code(s): I16.0 - HYPERTENSIVE URGENCY (2) Hyponatremia Current Visit: Yes Status: Acute Assessment & Plan: improved Code(s): E87.1 - HYPO-OSMOLALITY AND HYPONATREMIA (3) Rheumatoid arthritis Current Visit: Yes Status: Chronic Code(s): M06.9 - RHEUMATOID ARTHRITIS, UNSPECIFIED
[2020-06-15] MEDS ORDERED: Catapres 0.1 MG PO PRN (11:35)
[2020-06-15] MEDS ORDERED: Lopressor 25MG Tab PO SCH (12:00)
[2020-06-15] MEDS: Lopressor 25MG Tab PO SCH ×2 (19:30→21:27)
[2020-06-16 06:38] LABS: Absolute Neutrophil Ct (ANC) 1.44 (1.4-6.9); BASOPHIL % 0.3 % (0.0-0.4); Basophil (Absolute #) 0.01 (0-0.4); Eosinophil % 0.3 % (0.00-5.0); Eosinophil (Absolute #) 0.01 (0-0.5); Hematocrit 37.8 % (35-47); Hemoglobin 12.1 gm/dl (12.0-16.0); Lymphocytes % 31.1 % (24.0-44.0); Mean Cell Volume 90.4 fl (78-100); Mean Corpuscular Hemoglobin 28.9 pg (26-32); Mean Platelet Volume 10.3 fl (7.5-11.0); Monocyte (Absolute #) 0.53 (0.0-1.3); Monocytes % 18.3 % (0.0-12.0); Platelet Count 155 K/mm3 (150-450); Red Blood Count 4.18 M/mm3 (4.1-5.4); Red Cell Distribution Width 12.9 % (11.5-14.0); White Blood Count 2.9 K/mm3 (4.0-10.5)
[2020-06-16] MEDS: TYLENOL 325 MG PO PRN ×2 (07:00→22:00)
[2020-06-16 07:11] LABS: ALBUMIN 3.3 g/dL (3.5-5.0); ALKALINE PHOSPHATASE 71 U/L (38-126); ANION GAP 6.7 MEQ/L (5-15); BLOOD UREA NITROGEN 7 mg/dL (7-17); CHLORIDE 103 mmol/L (98-107); Calcium 8.7 mg/dL (8.4-10.2); Carbon Dioxide 29 mmol/L (22-30); Cholesterol 132 mg/dL (50-200); Creatinine 1 0.48 mg/dL (0.52-1.04); EST GLOMERULAR FILTRATION RATE > 60.0 ML/MIN; Glucose 87 mg/dL (74-106); HDL CHOLESTEROL 38 mg/dL (40-60); LDL, DIRECT 69 mg/dL (30-100); MAGNESIUM 2.1 mg/dL (1.6-2.3); Potassium 3.3 mmol/L (3.5-5.1); Risk Ratio 3.4; SGOT/AST 32 U/L (14-36); SGPT/ALT 21 U/L (0-35); SODIUM 136 mmol/L (137-145); TRIGLYCERIDE 114 mg/dL (30-150); Total Protein 6.3 g/dL (6.3-8.2)
[2020-06-16 07:48] LABS: TSH, 3RD Generation 1.42 mIU/L (0.47-4.68)
[2020-06-16] MEDS: Lopressor 25MG Tab PO SCH ×2 (09:20→21:53)
[2020-06-16] MEDS: celeBREX 100 MG PO SCH ×2 (09:20→21:53)
[2020-06-16] MEDS: PATIENT OWN MEDICATION PO SCH (09:25)
[2020-06-16] MEDS ORDERED: Lopressor 25MG Tab PO ONE (11:57)
[2020-06-16] MEDS: Zestril 20 MG PO SCH ×2 (12:18→21:53)
[2020-06-16] MEDS ORDERED: K-LYTE 25 MEQ PO ONE (13:43)
--- NOTE | 2020-06-16 14:51 | PCM.NOTE ---
Date and Time: 06/16/20 1440 Subjective Assessment: Patient is feeling unsteady 'like I do not know if I could get myself dressed". States she had been with her grandchildren about MAY 30 and they all had burning eyes and watery runny nose which lasted a week.Did not think she had fever then. Nobody was Covid tested at that time.Is wondering if she had it then. No sinus drainage or burning eyes now.Does have some nausea. No chest pain no cough or sob today. Potassium is low today 3.3. Metoprolol 12.5 bid was started and additional 12.5 mg given today at noon for B/P 184/88. Is on Lisinopril 20 daily. Is off Catapress. Will increase Metoprolol to 25mg bid and Lisinopril to 20mg bid. Is mey for CTA renal artery in AM. Will terst for Covid antibodies . Patient has RA/autoimmune dz. Objective Exam General Appearance: no apparent distress Neurologic Exam: alert, oriented x 3, cooperative, other (slow upon standing a little unsteady on her feet 1st few seconds.) Eye Exam: eyes nml inspection Ears, Nose, Throat Exam: normal ENT inspection Neck Exam: normal inspection, other (thyroid nonpalpable) Cardiovascular Exam: regular rate/rhythm, normal heart sounds (split S2) Gastrointestinal/Abdomen Exam: soft, other (nontender) Extremity Exam: normal inspection Back Exam: normal inspection, other (no CVA tenderness) OBJECTIVE DATA Vital Signs: Vital Signs - 24 hr Temp Pulse Resp BP Pulse Ox 06/16/20 12:00 97.7 F 68 20 184/84 98 06/16/20 07:51 97.9 F 77 20 168/79 97 06/16/20 03:56 99.0 F 64 20 135/78 95 06/15/20 23:43 98.8 F 67 19 129/72 96 06/15/20 22:00 98 06/15/20 19:40 100.2 F 71 18 135/92 97 06/15/20 16:00 98.6 F 78 18 139/79 98 Pain Assessment - Last Documented Pain Intensity 3 Pain Scale Used 0-10 Pain Scale Intake and Output: Intake & Output 06/14/20 06/15/20 06/16/20 06/17/20 11:59 11:59 11:59 11:59 Intake Total 841 1910 1420 Output Total 900 1909 1420 Weight 60.8 kg 61.5 kg 62.7 kg Lab Results: Lab Results-Last 24 Hours 06/16/20 06/16/20 06/16/20 Range/Units 06:15 06:15 06:15 WBC 2.9 L (4.0-10.5) K/mm3 RBC 4.18 (4.1-5.4) M/mm3 Hgb 12.1 (12.0-16.0) gm/dl Hct 37.8 (35-47) % MCV 90.4 (78-100) fl MCH 28.9 (26-32) pg MCHC 32.0 (32-36) g/dl RDW 12.9 (11.5-14.0) % Plt Count 155 (150-450) K/mm3 MPV 10.3 (7.5-11.0) fl Gran % 50.0 (36.0-66.0) % Eos # (Auto) 0.01 (0-0.5) Absolute Lymphs (auto) 0.90 L (1.0-4.6) Absolute Monos (auto) 0.53 (0.0-1.3) Lymphocytes % 31.1 (24.0-44.0) % Monocytes % 18.3 H (0.0-12.0) % Eosinophils % 0.3 (0.00-5.0) % Basophils % 0.3 (0.0-0.4) % Absolute Granulocytes 1.44 (1.4-6.9) Basophils # 0.01 (0-0.4) Sodium 136 L (137-145) mmol/L Potassium 3.3 L (3.5-5.1) mmol/L Chloride 103 (98-107) mmol/L Carbon Dioxide 29 (22-30) mmol/L Anion Gap 6.7 (5-15) MEQ/L BUN 7 (7-17) mg/dL Creatinine 0.48 L (0.52-1.04) mg/dL Estimated GFR > 60.0 ML/MIN Glucose 87 (74-106) mg/dL Calcium 8.7 (8.4-10.2) mg/dL Magnesium 2.1 (1.6-2.3) mg/dL Total Bilirubin 0.40 (0.2-1.3) mg/dL AST 32 (14-36) U/L ALT 21 (0-35) U/L Alkaline Phosphatase 71 (38-126) U/L Serum Total Protein 6.3 (6.3-8.2) g/dL Albumin 3.3 L (3.5-5.0) g/dL Triglycerides 114 (30-150) mg/dL Cholesterol 132 (50-200) mg/dL LDL Cholesterol 69 (30-100) mg/dL HDL Cholesterol 38 L (40-60) mg/dL Heart Disease Risk Ratio 3.4 Vitamin B12 586 (239-931) pg/mL TSH 3rd Generation 1.420 (0.47-4.68) mIU/L Radiology Exams: Radiology Procedures Category Date Time Status CTA ABDOMEN W AND/OR WO CONTRA [CT] Routine Exams 06/17/20 08:00 Ordered Assessment/Plan (1) Hypertensive urgency Current Visit: Yes Status: Acute Assessment & Plan: not yet controlled stopped Catapress and started slowly on [email or web address] have CTA renal artery in AM and ECHO Code(s): I16.0 - HYPERTENSIVE URGENCY (2) Hyponatremia Current Visit: Yes Status: Acute Assessment & Plan: [place] 25meq x 1 ,is not on diuretic Code(s): E87.1 - HYPO-OSMOLALITY AND HYPONATREMIA (3) Rheumatoid arthritis Current Visit: Yes Status: Chronic Code(s): M06.9 - RHEUMATOID ARTHRITIS, UNSPECIFIED (4) Light-headed feeling Current Visit: Yes Status: Acute Code(s): R42 - DIZZINESS AND GIDDINESS
[2020-06-16] MEDS ORDERED: Apresoline 25 MG TABLET PO PRN (17:10)
[2020-06-16] MEDS ORDERED: APRESOLINE 20 MG/ML INJ IV ONE (17:20)
[2020-06-16] MEDS: Ativan 0.5 MG PO PRN (18:26)
[2020-06-16] MEDS: Sodium Chloride 0.9% 10 ML FLUSH Syringe IV SCH (22:00)
[2020-06-17] MEDS: Ativan 0.5 MG PO PRN (02:45)
[2020-06-17] MEDS: Sodium Chloride 0.9% 10 ML FLUSH Syringe IV SCH (07:29)
[2020-06-17] MEDS: Sodium Chloride 0.9% 1000 ML 1,000 ML IV SCH (07:30)
[2020-06-17] MEDS ORDERED: Apresoline 25 MG TABLET PO PRN (07:30)
[2020-06-17] MEDS: Lopressor 25MG Tab PO SCH (09:08)
[2020-06-17] MEDS: celeBREX 100 MG PO SCH (09:08)
[2020-06-17] MEDS: Zestril 20 MG PO SCH (09:08)
[2020-06-17] MEDS: PATIENT OWN MEDICATION PO SCH (09:09)
[2020-06-17] MEDS: TYLENOL 325 MG PO PRN (09:14)
--- NOTE | 2020-06-17 09:20 | XRAY ---
Indication: Renal artery stenosis. Conventional contrast enhanced CTA abdominal aorta performed using 100 cc Isovue 370 contrast. 2-dimensional sagittal and coronal reformatted images obtained. Additional 3-dimensional reformatted images obtained using a separate workstation. Comparison: None Abdominal aorta demonstrates mild scattered arteriosclerotic calcifications without aneurysm/dissection. Normal branching celiac, superior mesenteric, and inferior mesenteric arteries. Minimal eccentric calcification seen at the origin of the celiac artery without critical stenosis/obstruction or poststenotic dilatation. Superior mesenteric and inferior mesenteric arteries are normal in CTA appearance. Left and right iliac arteries are normal in course and caliber without arteriosclerotic disease. A single renal artery supplies each kidney. Minimal eccentric calcification seen at the origin of the right and lesser degree at origin of the left main renal arteries without critical stenosis/obstruction or poststenotic dilatation. Remaining renal arteries are normal in CTA appearance. No pathologic retroperitoneal lymphadenopathy. Noncontrasted stomach and visualized bowel loops appear nonobstructed with scattered descending and sigmoid diverticulosis. There has been hysterectomy. Left pelvis demonstrates [id number] cysts, larger measuring 4 cm and smaller measuring 2.5 cm possibly ovary in etiology. No free fluid/air. Remaining liver, gallbladder, pancreas, spleen, adrenal glands, kidneys, ureters, and urinary bladder are unremarkable. Lung bases demonstrates borderline cardiomegaly with tiny bilateral effusions. Osseous structures demonstrates mild osteopenia, mild/moderate multilevel thoracolumbar degenerative spondylosis greatest L5-S1 level, and bilateral L5 spondylolysis with 5-6 mm spondylolisthesis. Impression: 1. Minimal/mild scattered arteriosclerotic disease. Negative AAA/dissection. 2. Main renal arteries demonstrates minimal eccentric calcifications, right greater than left. No critical stenosis/obstruction or post stenotic dilatation. 3. Left pelvis slox-uw-vuca cysts possibly ovary in etiology. Pelvic sonogram may yield further information. 4. Incidental borderline cardiomegaly with tiny bilateral effusions, colonic diverticulosis, and chronic bony findings.
[2020-06-17 12:28] VITALS: BP 130/76; PULSE 63; O2SAT 95
--- NOTE | 2020-06-17 13:08 | PCM.DS ---
Discharge Summary Date of Admission: 06/15/20 10:59 Admitting Physician: KERLINE OSPINA DO Primary Care Provider: JONNY JACK NP Allergies Allergies codeine [Codeine] Allergy (Mild, Verified 06/13/20 18:23) Vomiting fentanyl Allergy (Mild, Verified 06/13/20 18:23) meperidine HCl [From Demerol] Allergy (Mild, Verified 06/13/20 18:23) morphine Allergy (Mild, Verified 06/13/20 18:23) VOMITING promethazine HCl [From Phenergan] Allergy (Mild, Verified 06/13/20 18:23) Hospital Summary - Vitals & Intake/Output Vital Signs: Vital Signs Temperature 98.4 F 06/17/20 12:00 Pulse Rate 63 06/17/20 12:00 Respiratory Rate 20 06/17/20 12:00 Blood Pressure 130/76 06/17/20 12:00 O2 Sat by Pulse Oximetry 95 06/17/20 12:00 Intake & Output: Intake & Output 06/15/20 06/16/20 06/17/20 06/18/20 11:59 11:59 11:59 11:59 Intake Total 1909 1420 900 Balance 1909 1420 900 Weight 61.5 kg 62.7 kg 63.4 kg - Lab Result Diagrams: 06/16/20 06:15 06/16/20 06:15 Micro Results-Entire Visit: Microbiology 06/13/20 18:42 Urine Culture - Final Urine, Void <10K NORMAL SKIN IVETT PROBABLE SKIN CONTAMINANT - Radiology Exams Ordered Rad Exams-Entire Visit: Radiology Procedures Category Date Time Status CTA ABDOMEN W AND/OR WO CONTRA [CT] Routine Exams 06/17/20 08:00 Completed ECHO W/2D AND DOPPLER [US] Routine Exams 06/17/20 10:31 Taken Final Diagnosis/Problem List - Final Discharge Diagnosis/Problem (1) Hypertensive urgency Current Visit: Yes Status: Acute Code(s): I16.0 - HYPERTENSIVE URGENCY (2) Hyponatremia Current Visit: Yes Status: Acute Code(s): E87.1 - HYPO-OSMOLALITY AND HYPONATREMIA (3) Rheumatoid arthritis Current Visit: Yes Status: Chronic Code(s): M06.9 - RHEUMATOID ARTHRITIS, UNSPECIFIED (4) Light-headed feeling Current Visit: Yes Status: Acute Code(s): R42 - DIZZINESS AND GIDDINESS - Discharge Disposition: Home, Self-Care Condition: Stable Prescriptions: New HydrALAzine HCL 25 MG TAB [Apresoline 25 MG TABLET] 12.5 mg PO BID PRN PRN 30 Days #60 tablet PRN Reason: Hypertension Metoprolol Tartrate 25 mg [Lopressor 25MG Tab] 25 mg PO BID #60 tab Lisinopril 20 mg [Zestril 20 MG] 20 mg PO BID #60 tablet Continue Celecoxib [Celebrex] 200 mg PO BID Leflunomide 1 tab PO DAILY Changed Lisinopril 10 mg [Zestril 10 MG] 2 tab PO DAILY #60 tablet Instructions: High Blood Pressure (DC) Additional Instructions: Patient needs a CCS scheduled as outpatient. npo and No caffeine 8 hours prior to test. Schedule an outpatient cardiology consult appt with for htn urgency. Follow up with: GAYLE RIZZO MD [NON-STAFF PHY W/O PRIVILEGES] - 06/24/20 1:00 pm KERLINE OSPINA DO [ACTIVE STAFF] - 06/25/20 1:30 pm
== END 2020-06-17 13:45 | disposition home or self-care (01) | DRG 305 ==
LOC: ED 18:11 → MED SURG 22:19 → OBSVTOIN 06-15 10:59
PROVIDERS: ADMIT Family Medicine; ATTEND Family Medicine
DX: I16.0 Hypertensive urgency (principal); E87.1 Hypo-osmolality and hyponatremia; E78.1 Pure hyperglyceridemia; M06.9 Rheumatoid arthritis, unspecified; R42 Dizziness and giddiness; Z79.899 Other long term (current) drug therapy; E86.0 Dehydration
CPT/HCPCS: 36000; 36415; 70450; 71045; 74175; 80048; 80053; 80061; 81001; 82607; 83721; 83735; 84443; 84484; 85025; 86769; 87086; 93005; 93041; 93268; 93306; 96360; 96361; 96374; 96375; 99285; 99291; G0378; J0360; A9270-GY

== ENCOUNTER 2022-08-19 20:46 | Emergency (ER) | payer MEDICARE, OTHER ==
[2022-08-19] MEDS ORDERED: CLONIDINE 0.1 MG TABLET PO ONE (21:15)
[2022-08-19] MEDS ORDERED: CLONIDINE 0.1 MG TABLET ONE (21:17)
--- NOTE | 2022-08-19 21:22 | ERPHSYRPT ---
- History of Present Illness Source: patient Exam Limitations: no limitations Patient Subjective Stated Complaint: pt states my blood pressure was creeping up around 7:30 Triage Nursing Assessment: pt ambulated into the er; pt transfered self to bed; pt is axo x4; c/o HTN; no respiratory distress present; clear apical heart tone; clear lung sounds in all lobes; hypertension; skin PDW; pt denies CP; no edema present Physician History: 77 yo WF w known hypertension presents w her BP being elevated since 1999. Pt denies chest pain/headache/focal weakness/N/V/non-compliance w meds. Pt takes Lisinopril 10mg BID which she took at 1999 and also Hydralyzine prn which she took before coming to the ER. Timing/Duration: other (20:00) Severity: moderate Modifying Factors: Improves With: nothing Associated Symptoms: denies symptoms Allergies/Adverse Reactions: codeine [Codeine] Allergy (Mild, Verified 08/19/22 20:55) Vomiting fentanyl Allergy (Mild, Verified 08/19/22 20:56) Vomiting meperidine HCl [From Demerol] Allergy (Mild, Verified 08/19/22 20:56) Vomiting morphine Allergy (Mild, Verified 08/19/22 20:56) Vomiting VOMITING promethazine HCl [From Phenergan] Allergy (Mild, Verified 08/19/22 20:56) Vomiting Home Medications: Celecoxib [Celebrex] 200 mg PO DAILY 10/25/11 [History] Leflunomide 1 tab PO DAILY 06/13/20 [History] Lisinopril 10 mg [Zestril 10 MG] 20 mg PO BID 08/19/22 [History] Hx Tetanus, Diphtheria Vaccination/Date Given: No Hx Influenza Vaccination/Date Given: Yes Hx Pneumococcal Vaccination/Date Given: No Travel Risk - International Travel Have you traveled outside of the country in past 3 weeks: No - Coronavirus Screening Are you exhibiting any of the following symptoms?: No Close contact with a COVID-19 positive Pt in past 14-21 Days: No - Vaccine Status Have you recieved a Covid-19 vaccination: Yes Filament Tester: Moderna - Vaccination Dates Date of 2cond Vaccination (if applicable): 2020 - Review of Systems Constitutional: No Symptoms Eyes: No Symptoms Ears, Nose, & Throat: No Symptoms Respiratory: No Symptoms Cardiac: No Symptoms Abdominal/Gastrointestinal: No Symptoms Genitourinary Symptoms: No Symptoms Musculoskeletal: No Symptoms Skin: No Symptoms Neurological: No Symptoms Psychological: No Symptoms Endocrine: No Symptoms Hematologic/Lymphatic: No Symptoms Immunological/Allergic: No Symptoms - Past Medical History Pertinent Past Medical History: Yes Neurological History: No Pertinent History ENT History: No Pertinent History Cardiac History: Hypertension Respiratory History: No Pertinent History Endocrine Medical History: No Pertinent History Musculoskeletal History: Osteoarthritis, Rheumatoid Arthritis GI Medical History: No Pertinent History History: No Pertinent History Psycho-Social History: No Pertinent History Female Reproductive Disorders: No Pertinent History Other Medical History: NO SIGNIFICANT SURGICAL HX. PAST SUMMER HAD RIGHT EYE SURGERY FOR TEAR IN [place] - Past Surgical History Past Surgical History: Yes Neuro Surgical History: No Pertinent History Cardiac: No Pertinent History Respiratory: No Pertinent History Genitourinary: No Pertinent History Musculoskeletal: No Pertinent History Female Surgical History: Hysterectomy Other Surgical History: JOINT REPLACEMENT right HAND AND ONLY PARTIAL HYSTERECTOMY - Social History Smoking Status: Never smoker Exposure to second hand smoke: Yes Drug Use: none Patient Lives Alone: Yes - Nursing Vital Signs Nursing Vital Signs: Initial Vital Signs Temperature 97 F 08/19/22 20:56 Pulse Rate 82 08/19/22 20:56 Respiratory Rate 18 08/19/22 20:56 Blood Pressure 209/105 08/19/22 20:56 O2 Sat by Pulse Oximetry 98 08/19/22 20:56 Pain Scale Pain Intensity 0 Hypertensive - Physical Exam General Appearance: no apparent distress Eye Exam: PERRL/EOMI, eyes nml inspection Ears, Nose, Throat Exam: normal ENT inspection, TMs normal, pharynx normal, moist mucous membranes Neck Exam: normal inspection, non-tender, supple, No meningismus Respiratory Exam: normal breath sounds, lungs clear, airway intact Cardiovascular Exam: regular rate/rhythm, normal heart sounds, normal peripheral pulses, capillary refill <2 sec, No murmur Gastrointestinal/Abdomen Exam: soft, normal bowel sounds Back Exam: normal inspection, normal range of motion, No CVA tenderness, No vertebral tenderness Extremity Exam: normal inspection, normal range of motion Neurologic Exam: alert, oriented x 3, cooperative, 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, normal mood/affect, nml cerebellar function, nml station & gait, sensation nml Skin Exam: normal color, warm, dry Lymphatic Exam: No adenopathy SpO2 Interpretation: normal SpO2: 98 O2 Delivery: Room Air - Course EKG Interpreted by Me: RATE (NSR/Rate 80/Normal QT-QTc/No acute ST segment changes) Ordered Tests: Active Orders 24 hr Category Date Time Status EKG-ER Only STAT Care 08/19/22 21:16 Completed IV Insertion STAT Care 08/19/22 21:17 Completed CBC W DIFF Stat Lab 08/19/22 21:41 Completed CMP Stat Lab 08/19/22 21:41 Completed PROTIME WITH INR Stat Lab 08/19/22 21:41 Completed PTT Stat Lab 08/19/22 21:41 Completed TROPONIN Q4H Lab 08/19/22 21:41 Completed Medication Summary Discontinued Medications Generic Name Dose Route Start Last Admin Trade Name Karin PRN Reason Stop Dose Admin Clonidine 0.2 mg 08/19/22 21:15 08/19/22 21:18 Clonidine Hcl 0.1 Mg Tablet PO 08/19/22 21:16 0.2 mg STAT ONE Administration Clonidine Confirm 08/19/22 21:17 Clonidine Hcl 0.1 Mg Tablet Administered 08/19/22 21:18 Dose 0.2 mg .ROUTE .[employer] ONE Lab/Rad Data: Laboratory Result Diagrams 08/19/22 21:41 08/19/22 21:41 Laboratory Results 08/19/22 08/19/22 08/19/22 Range/Units 21:41 21:41 21:41 WBC (4.0-10.5) x10^3/uL RBC (4.1-5.4) x10^6/uL Hgb (12.0-16.0) g/dL Hct (35-47) % MCV (78-100) fL MCH (26-32) pg MCHC (32-36) g/dL RDW (11.5-14.0) % Plt Count (150-450) x10^3/uL MPV (7.5-11.0) fL Gran % (36.0-66.0) % Immature Gran % (Auto) (0.00-0.4) % Nucleat RBC Rel Count (0.00-0.1) % Eos # (Auto) (0-0.5) x10^3/uL Immature Gran # (Auto) (0.00-0.03) x10^3u/L Absolute Lymphs (auto) (1.0-4.6) x10^3/uL Absolute Monos (auto) (0.0-1.3) x10^3/uL Absolute Nucleated RBC (0.00-0.01) x10^3u/L Lymphocytes % (24.0-44.0) % Monocytes % (0.0-12.0) % Eosinophils % (0.00-5.0) % Basophils % (0.0-0.4) % Absolute Granulocytes (1.4-6.9) x10^3/uL Basophils # (0-0.4) x10^3/uL PT 10.2 (9.4-12.5) SECONDS INR 0.93 (0.8-3.0) APTT 26.1 (25.1-36.5) SECONDS Sodium 139 (137-145) mmol/L Potassium 3.5 (3.5-5.1) mmol/L Chloride 102 (98-107) mmol/L Carbon Dioxide 27 (22-30) mmol/L Anion Gap 13.2 (5-15) MEQ/L BUN 19 H (7-17) mg/dL Creatinine 0.58 (0.52-1.04) mg/dL Estimated GFR > 60.0 ML/MIN Glucose 104 (74-106) mg/dL Calcium 9.2 (8.4-10.2) mg/dL Total Bilirubin 0.60 (0.2-1.3) mg/dL AST 29 (14-36) U/L ALT 16 (0-35) U/L Alkaline Phosphatase 94 (38-126) U/L Troponin I < 0.012 (0.000-0.034) ng/mL Serum Total Protein 8.0 (6.3-8.2) g/dL Albumin 4.5 (3.5-5.0) g/dL 08/19/22 Range/Units 21:41 WBC 3.4 L (4.0-10.5) x10^3/uL RBC 4.60 (4.1-5.4) x10^6/uL Hgb 13.2 (12.0-16.0) g/dL Hct 42.1 (35-47) % MCV 91.5 (78-100) fL MCH 28.7 (26-32) pg MCHC 31.4 L (32-36) g/dL RDW 13.0 (11.5-14.0) % Plt Count 173 (150-450) x10^3/uL MPV 10.0 (7.5-11.0) fL Gran % 52.2 (36.0-66.0) % Immature Gran % (Auto) 0.3 (0.00-0.4) % Nucleat RBC Rel Count 0.0 (0.00-0.1) % Eos # (Auto) 0.11 (0-0.5) x10^3/uL Immature Gran # (Auto) 0.01 (0.00-0.03) x10^3u/L Absolute Lymphs (auto) 1.06 (1.0-4.6) x10^3/uL Absolute Monos (auto) 0.42 (0.0-1.3) x10^3/uL Absolute Nucleated RBC 0.00 (0.00-0.01) x10^3u/L Lymphocytes % 31.3 (24.0-44.0) % Monocytes % 12.4 H (0.0-12.0) % Eosinophils % 3.2 (0.00-5.0) % Basophils % 0.6 (0.0-0.4) % Absolute Granulocytes 1.77 (1.4-6.9) x10^3/uL Basophils # 0.02 (0-0.4) x10^3/uL PT (9.4-12.5) SECONDS INR (0.8-3.0) APTT (25.1-36.5) SECONDS Sodium (137-145) mmol/L Potassium (3.5-5.1) mmol/L Chloride (98-107) mmol/L Carbon Dioxide (22-30) mmol/L Anion Gap (5-15) MEQ/L BUN (7-17) mg/dL Creatinine (0.52-1.04) mg/dL Estimated GFR ML/MIN Glucose (74-106) mg/dL Calcium (8.4-10.2) mg/dL Total Bilirubin (0.2-1.3) mg/dL AST (14-36) U/L ALT (0-35) U/L Alkaline Phosphatase (38-126) U/L Troponin I (0.000-0.034) ng/mL Serum Total Protein (6.3-8.2) g/dL Albumin (3.5-5.0) g/dL - Progress Progress: improved Progress Note: 08/19/22 22:41 Nursing note and vital signs reviewed No food or housing insecurities noted Pt is a full code Additional history per son No chest pain, dyspnea, focal weakness, or headache while in ER BP decreased after 0.2 po clonidine All lab results reviewed and shared w pt/son 08/19/22 22:58 Counseled pt/family regarding: lab results, diagnosis, need for follow-up - Departure Departure Disposition: Home Clinical Impression: Hypertensive urgency Condition: Stable Critical Care Time: No Referrals: KERLINE OSPINA DO [Primary Care Provider] - Follow up/PCP as directed Instructions: Malignant Hypertension (DC) Additional Instructions: Continue current blood pressure meds Clonidine for systolic blood pressure(Top number) greater than 170 or diastolic blood pressure(bottom number) greater than 95 Follow up with your access developer in 1-2 days Return to ER for chest pain, focal weakness, or shortness of breath Prescriptions: Clonidine HCl 0.1 mg [Clonidine 0.1 mg Tablet] 0.1 mg PO TID PRN PRN #15 tablet PRN Reason: Elevated Blood Pressure
[2022-08-19 21:44] LABS: Absolute Neutrophil Ct (ANC) 1.77 x10^3/uL (1.4-6.9); BASOPHIL % 0.6 % (0.0-0.4); Basophil (Absolute #) 0.02 x10^3/uL (0-0.4); Eosinophil % 3.2 % (0.00-5.0); Eosinophil (Absolute #) 0.11 x10^3/uL (0-0.5); Hematocrit 42.1 % (35-47); Hemoglobin 13.2 g/dL (12.0-16.0); IMMATURE GRAN # 0.01 x10^3u/L (0.00-0.03); IMMATURE GRAN % 0.3 % (0.00-0.4); Lymphocyte (Absolute #) 1.06 x10^3/uL (1.0-4.6); Lymphocytes % 31.3 % (24.0-44.0); Mean Cell Volume 91.5 fL (78-100); Mean Corpuscular Hemoglobin 28.7 pg (26-32); Mean Corpuscular Hgb Concent. 31.4 g/dL (32-36); Monocyte (Absolute #) 0.42 x10^3/uL (0.0-1.3); Monocytes % 12.4 % (0.0-12.0); Neutrophil % 52.2 % (36.0-66.0); Platelet Count 173 x10^3/uL (150-450); White Blood Count 3.4 x10^3/uL (4.0-10.5)
[2022-08-19 21:59] LABS: INR 0.93 (0.8-3.0); PROTIME 10.2 SECONDS (9.4-12.5); PTT 26.1 SECONDS (25.1-36.5)
[2022-08-19 22:02] LABS: ALBUMIN 4.5 g/dL (3.5-5.0); ALKALINE PHOSPHATASE 94 U/L (38-126); ANION GAP 13.2 MEQ/L (5-15); BLOOD UREA NITROGEN 19 mg/dL (7-17); CHLORIDE 102 mmol/L (98-107); Calcium 9.2 mg/dL (8.4-10.2); Carbon Dioxide 27 mmol/L (22-30); Creatinine 1 0.58 mg/dL (0.52-1.04); EST GLOMERULAR FILTRATION RATE > 60.0 ML/MIN; Glucose 104 mg/dL (74-106); Potassium 3.5 mmol/L (3.5-5.1); SGOT/AST 29 U/L (14-36); SGPT/ALT 16 U/L (0-35); SODIUM 139 mmol/L (137-145)
[2022-08-19 22:45] VITALS: BP 136/89; PULSE 72; O2SAT 98
== END 2022-08-19 22:55 | disposition home or self-care (01) ==
LOC: ED 20:46
DX: I16.0 Hypertensive urgency (principal); I10 Essential (primary) hypertension; Z79.899 Other long term (current) drug therapy
CPT/HCPCS: 36000; 36415; 80053; 84484; 85025; 85610; 85730; 93005; 99283; A9270-GY